=== PATIENT | female | born 1975 | race Caucasian/White ===

== ENCOUNTER 2024-05-06 20:52 | Emergency (ER) | payer OTHER, SELFPAY ==
[2024-05-06 21:01] VITALS: BP 142/118
[2024-05-06 21:03] VITALS: BP 142/118
[2024-05-06 21:16] VITALS: BMI 24.2
[2024-05-06 21:24] VITALS: BP 139/91
[2024-05-06 21:25] VITALS: BP 139/91
[2024-05-06 21:35] LABS: % Basophils 0.8 % (0-2); % Eosinophils 0.8 % (0-6); % Immature Granulocytes 0.3 % (0-0.5); % Lymphocytes 47.6 % (20.5-51.1); % Monocytes 8.9 % (1.7-9.3); % Neutrophils 41.6 % (42.2-75.2); Absolute Basophils 0.1 10^3/uL (0-0.2); Absolute Eosinophils 0.1 10^3/uL (0-0.7); Absolute Lymphocytes 3.7 10^3/uL (1.2-3.4); Absolute Monocytes 0.7 10^3/uL (0.1-0.6); Absolute Neutrophils 3.2 10^3/uL (1.4-6.5); Hematocrit 40.6 % (37.0-47.0); Hemoglobin 13.5 g/dL (12.0-16.0); Mean Corp Hgb Conc. 33.3 g/dL (33.0-37.0); Mean Corpuscular Hgb 33.1 pg (27.0-31.0); Mean Corpuscular Volume 99.5 fL (81.0-99.0); Nucleated Red Blood Cells % 0 %; Platelet Count 307 10^3/uL (130-400); Red Blood Cell Count 4.08 10^6/uL (4.20-5.40); Red Cell Dist. Width 12.2 % (11.5-14.5); White Blood Cell Count 7.7 10^3/uL (4.8-10.8)
[2024-05-06 21:56] LABS: ALT (SGPT) 22 U/L (0-35); AST (SGOT) 32 U/L (14-36); Albumin 4.8 g/dl (3.5-5.0); Alkaline Phosphatase 55 U/L (38-126); Blood Urea Nitrogen 10 mg/dl (7-17); Calcium 9.5 mg/dl (8.4-10.2); Carbon Dioxide 25 mmol/L (22-30); Chloride 105 mmol/L (98-107); Estimated Creatinine Clearance 86 ml/min; Glucose 84 mg/dl (70-99); Potassium 4.3 mmol/L (3.5-5.1); Sodium 143 mmol/L (135-145); Total Bilirubin 0.4 mg/dl (0.2-1.3); Total Protein 7.6 g/dl (6.3-8.2); eGFR > 60.00
[2024-05-06 22:00] VITALS: BP 117/83
[2024-05-06 22:07] LABS: Alcohol 327 mg/dl
[2024-05-06 23:00] VITALS: BP 125/84
--- NOTE | 2024-05-06 23:06 | ED.GENMED ---
History of Present Illness
General
Chief Complaint: Swelling
Source: patient
Exam Limitations: none
Time Seen by Provider: 05/06/24 23:01
Nursing documentation reviewed up to this point in time: agreed with
History of Present Illness
History of Present Illness:
48-year-old female brought in by EMS from home admitted to drinking alcohol. She had right-sided facial swelling which patient feels is allergic reaction. There is pain and swelling. Patient is unsure of any trauma. EMS gave her 50 mg of
Benadryl and she states that the swelling decreased. History is limited.
Phy Exam
Physical Exam
Physical Exam:
Physical Exam
Vital signs and allergy list reviewed and agreed with.
GENERAL: Alert , in moderate apparent distress
EYE: pupils equal, EOMI, anicteric
NECK: Supple, no significant adenopathy. No masses. Trachea midline
ENT: Oropharynx is clear, mmm. Bruising to her right zygomatic arch. Black eye on the right
CARDIAC: Regular rate and rhythm . No M/R/G
LUNGS: Clear breath sounds bilaterally, no acute respiratory distress, no wheezes/rales/rhonchi
ABDOMEN: Soft, without focal tenderness, no r/g, no cvat. Normal BSx4q
NEUROLOGICAL: Alert and oriented, no focal neuro deficits
SKIN: Warm and dry, skin intact.
MUSCULOSKELETAL: No edema, well perfused. Moves all 4 extremities
PSYCH: Normal and appropriate interaction. Somnolent
Scores
Heart Failure Risk
Heart Failure Risk Score: Not Applicable
Course
Orders/Labs/Results
Orders:
Orders
05/06/24 21:30
Alcohol Urgent
Complete Blood Count/With Diff Urgent
Comprehensive Metabolic Panel Urgent
05/07/24 00:00
CT Cervical Spine W/o Iv Contr Urgent
Reason For Exam: intox, Facial and head trauma
CT Facial Bones W/o Iv Contras Urgent
Reason For Exam: intox, Facial and head trauma
CT Head W/o Iv Contrast Urgent
Reason For Exam: intox, Facial and head trauma
CR Chest - 2 Views Urgent
Reason For Exam: cough
Abnormal Lab Results
05/06/24
21:30
RBC 4.08 L 10^6/uL
(4.20-5.40)
MCV 99.5 H fL
(81.0-99.0)
MCH 33.1 H pg
(27.0-31.0)
Absolute Lymphs (auto) 3.7 H 10^3/uL
(1.2-3.4)
Absolute Monos (auto) 0.7 H 10^3/uL
(0.1-0.6)
Neutrophils % 41.6 L %
(42.2-75.2)
05/06/24 21:30
05/06/24 21:30
Vital Signs
Initial and Last Documented VS:
Initial Vital Signs
Pulse Resp
123 19
05/06/24 21:00 05/06/24 21:00
Last Documented Vital Signs
Temp Pulse Resp BP Pulse Ox
98.8 F 103 17 104/73 95
05/06/24 21:01 05/06/24 23:45 05/06/24 23:45 05/07/24 01:10 05/07/24 02:15
*Critical Care Note
Total Time (30-74mins, 75-104mins- exclusive of procedures): Not Applicable
Update Note
Update Note:
IMPRESSION:
Head:
No acute intracranial hemorrhage, mass or mass-effect.
Skull intact.
Face:
No acute fracture or malalignment.
Mucous retention cyst left maxillary sinus. Paranasal sinuses are otherwise clear.
Orbits and lens grossly intact.
Cervical spine:
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 However correlate for any focal tenderness to suggest acute trauma
No acute fracture or malalignment of the cervical spine. Mild straightening/reversal of C-spine curvature may be positional.
Moderate degenerative changes of the spine. Likely associated grade 1 anterolisthesis C4 on C5
ED Attending Note
-
Portions of this chart may have been created with voice recognition software.� Occasional wrong word or��sound alike� substitutions may have occurred due to the inherent limitations of voice recognition software.
Discharge Plan
Departure
Patient Disposition: Home (Routine Discharge)
Date of Disposition: 05/07/24
Time of Disposition: 02:47
Patient with high blood pressure during this ER visit?: No
Condition: Good
Discharge Problem:
Alcohol intoxication
Referrals:
Jordyn Loja DO [Family Provider] -
Interventions
Interventions:
*Risk Screen - Suicide Last Done: 05/06/24 21:01
*General Assessment Last Done: 05/06/24 21:01
*Neglect/Abuse Screening Last Done: 05/06/24 21:01
ED- Fall Risk Assessment Last Done: 05/06/24 21:16
*ED COVID-19 Vaccine History Last Done: 05/06/24 21:16
*Nursing Disposition Last Done: 05/07/24 06:23
ED- Cardiac Assessment Last Done: 05/06/24 21:16
ED- Pulmonary Assessment Last Done: 05/06/24 21:16
ED-Skin Assessment Last Done: 05/06/24 21:16
Discharge Date and Time
Discharge Date/Time: 05/07/24 06:23
Print Language: ITALIAN
[2024-05-07 01:10] VITALS: BP 104/73
== END 2024-05-07 06:23 | disposition home or self-care (01) ==
LOC: EMR 20:52
PROVIDERS: Emergency Medicine; EMERGENCY PHYSICIAN Student in an Organized Health Care Education/Training Program; FAMILY PHYSICIAN Family Medicine
DX: F10.129 Alcohol abuse with intoxication, unspecified (principal)
CPT/HCPCS: 99285; 70450; 70486; 71046; 72125; 80053; 82077; 85025